=== PATIENT | female | born 1955 | race Caucasian/White ===

== ENCOUNTER 2023-07-13 17:03 | Outpatient (CLI) | payer MEDICARE, OTHER | END 2023-07-13 17:04 | disposition critical access hospital (66) | LOC: EMS 17:03 | DX: S09.90XA Unspecified injury of head, initial encounter (principal); V18.4XXA Pedal cycle driver injured in noncollision transport accident in traffic accident, initial encounter; Y93.55 Activity, bike riding; Y92.828 Other wilderness area as the place of occurrence of the external cause | CPT/HCPCS: A0425; A0429 ==

== ENCOUNTER 2023-07-13 17:21 | Emergency (ER) | payer MEDICARE, OTHER ==
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
[2023-07-13 17:39] VITALS: O2SAT 100
[2023-07-13] MEDS: ACETAMINOPHEN 325 MG TABLET PO STA (18:00)
[2023-07-13] MEDS: KETOROLAC 15 MG/ML VIAL IVP STA (18:01)
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
[2023-07-13 19:19] VITALS: BP 123/90
== END 2023-07-13 19:18 | disposition home or self-care (01) ==
LOC: ED 17:21
DX: S06.0X1A Concussion with loss of consciousness of 30 minutes or less, initial encounter (principal); S50.01XA Contusion of right elbow, initial encounter; S00.93XA Contusion of unspecified part of head, initial encounter; S63.616A Unspecified sprain of right little finger, initial encounter; V19.9XXA Pedal cyclist (driver) (passenger) injured in unspecified traffic accident, initial encounter; Y93.55 Activity, bike riding
CPT/HCPCS: 96374; 99284

== ENCOUNTER 2023-07-16 11:21 | Emergency (ER) | payer MEDICARE, OTHER ==
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
[2023-07-16 13:12] VITALS: BP 133/78; O2SAT 100
== END 2023-07-16 13:06 | disposition home or self-care (01) ==
LOC: ED 11:21
DX: S06.0X0A Concussion without loss of consciousness, initial encounter (principal); V19.9XXA Pedal cyclist (driver) (passenger) injured in unspecified traffic accident, initial encounter; Y93.55 Activity, bike riding
CPT/HCPCS: 99283; 99284